=== PATIENT | male | born 1965 | race Caucasian/White ===

== ENCOUNTER 2018-10-29 10:46 | Day surgery (SDC) | payer BC ==
[~2018-10-29 10:46] MED LIST: Buffered Lidocaine 1% SYRIN* 1 ML/SYRINGE INTRADERM ONE; Bupivacaine 0.5% SDV PF* 30ML VIAL ONE; Dexamethasone IV* 4 MG/ML 1 ML (4 MG) IV SLOW PU ONE; Famotidine IV* 10 MG/ML 2 ML (20 mg) IV ONE; Lactated Ringers 1000 ML Bag* 1,000 ML IV SCH
[2018-10-29] MEDS ORDERED: Dexamethasone IV* 4 MG/ML 1 ML (4 MG) ONE (10:52)
[2018-10-29] MEDS ORDERED: Famotidine IV* 10 MG/ML 2 ML (20 mg) ONE (10:52)
[2018-10-29] MEDS ORDERED: fentaNYL* 50 MCG/ML 2 ML VIAL (100 MCG VIAL) ONE ×2 (11:00→11:45)
[2018-10-29] MEDS ORDERED: Mepivacaine 2% MPF (20 MG/ML)* 20 ML MPF ONE (11:41)
[2018-10-29] MEDS ORDERED: Mepivacaine 1% (10 MG/ML)* 30 ML SDV ONE (11:42)
[2018-10-29] MEDS ORDERED: Midazolam* 1 MG/ML 2 ML VIAL (2 MG) ONE (11:45)
[2018-10-29] MEDS ORDERED: Lidocaine 2% PF * 5 ML VIAL ONE (11:46)
[2018-10-29] MEDS ORDERED: Propofol* 10 MG/ML 20 ML BTL ONE ×2 (11:46→12:59)
[2018-10-29] MEDS ORDERED: Naloxone* 0.4 MG/ML 1 ML VIAL IV PRN (13:07)
[2018-10-29 14:38] VITALS: BP 121/75
--- NOTE | 2018-10-29 18:18 | OP ---
DATE OF OPERATION: 10/29/18 [facility] DATE OF : 63 SURGEON: Masha Jackson MD. VISUAL TRAINING AIDE: SANDHYA Andre. ANESTHESIA: Block. PRE-OP DIAGNOSIS: Right elbow loose bodies and osteophytes. POST-OP DIAGNOSIS: Right elbow loose bodies and osteophytes. OPERATIVE PROCEDURE: Right elbow removal of loose bodies and osteophytes. ESTIMATED BLOOD LOSS: Zero. TOURNIQUET TIME: About an hour and a half. INDICATION FOR PROCEDURE: Bryan is a 53-year-old male who has history of right elbow arthritis. He has had two prior debridements for osteophytes and loose bodies and now has some recent loss of extension and rotation. He presents for removal of osteophytes and loose bodies. DESCRIPTION OF PROCEDURE: The patient was brought to the operating room, was given a block anesthetic, and placed in the supine position on the operating table with a tourniquet around his right upper arm. The skin of his right upper extremity was prepped and draped in the usual sterile fashion. The upper extremity was exsanguinated and the tourniquet elevated to 250 mmHg. A lateral longitudinal incision was made through the prior scar and we dissected through the extensor mechanism with a longitudinal split in the fibers and in the joint capsule. There was one small loose body that was removed and the joint was irrigated, and with pronation and supination of the forearm, we were able to gain access to an osteophyte on the radial neck as well. This was removed with a small sagittal saw. The wound was irrigated. The joint capsule was closed with 0 Vicryl suture. The extensor origin was closed with 0 Vicryl suture. The subcutaneous tissue was closed with 3-0 Vicryl and the skin with skin mely. Next, a posterior incision was made just on the medial aspect. We dissected through the subcutaneous tissue down to the triceps tendon. The tendon was split just medial to the edge of the tendon and the joint capsule was incised. There was a large posterior osteophyte that was removed with an osteotome and curette. After this, we were able to gain full extension of the elbow joint. The wound was irrigated. The joint capsule was closed with 0 Vicryl. The triceps tendon was reapproximated with 0 Vicryl suture and then the subcutaneous tissue closed with 3-0 Vicryl, the skin was closed with skin mely, and then the wounds were dressed with Xeroform, 4x4, Webril, and ABD. The patient tolerated the procedure well and was brought to the recovery room in good condition. [id number] #: [id number] MTDD
== END 2018-10-29 14:38 | disposition home or self-care (01) ==
LOC: OREAST 10:46
PROVIDERS: ATTEND Orthopaedic Surgery
DX: M25.721 Osteophyte, right elbow (principal); M24.021 Loose body in right elbow; M13.821 Other specified arthritis, right elbow
CPT/HCPCS: 88304; 88311; J0670; J1100; J2250; J2704; J3010; J3490